=== PATIENT | female | born 1985 | race Caucasian/White ===

== ENCOUNTER 2017-09-23 09:46 | Emergency (ER) | payer OTHER ==
[2017-09-23] MEDS ORDERED: Ketorolac Tromethamine 30 MG/ML VIAL ONE (10:21)
== END 2017-09-23 10:39 | disposition home or self-care (01) ==
LOC: SCSER 09:46
DX: S00.01XA Abrasion of scalp, initial encounter (principal); F17.210 Nicotine dependence, cigarettes, uncomplicated; Z79.899 Other long term (current) drug therapy; F98.8 Other specified behavioral and emotional disorders with onset usually occurring in childhood and adolescence; W22.8XXA Striking against or struck by other objects, initial encounter
CPT/HCPCS: 96372; 99406; J1885